=== PATIENT | male | born 1950 | race Caucasian/White ===

== ENCOUNTER 2021-12-09 19:24 | Inpatient (IN) ==
--- NOTE | 2021-12-09 20:01 | Emergency Department Note ---
HPI General Chief complaint: Blood Pressure Problem Stated complaint: hypertension Time Seen by Provider: 12/09/21 19:26 Source: patient Mode of arrival: ambulatory Limitations: no limitations History of Present Illness HPI Narrative: Narrative: Patient is a 71-year-old male who presents to the emergency department with a chief complaint of high blood pressure. Patient reports a mild headache for the last 2 days. Patient is on lisinopril 40 mg daily as well as metoprolol 100 mg twice a day. Patient reports he has been compliant with his medications. He denies any chest pain, shortness of breath or lower e xtremity swelling. Related Data Home Medications Medication Instructions Recorded Confirmed metoprolol tartrate 100 mg tablet 100 mg PO BID 07/08/19 10/02/21 glipizide 2.5 mg tablet, extended 2.5 mg PO QDAY tab 08/15/21 10/02/21 release 24 hr aspirin 81 mg tablet,delayed 81 mg PO QDAY 09/26/21 10/02/21 release (Adult Low Dose Aspirin) Memory Pill PO QDAY 10/03/21 Sugar Balance PO QDAY 10/03/21 Previous Rx's Medication Instructions Recorded metformin 1,000 mg tablet 1,000 mg PO BID #180 tab 09/19/19 lisinopril 40 mg tablet 40 mg PO QDAY #30 tab 08/15/21 doxazosin 4 mg tablet 4 mg PO QHS #30 tab 09/26/21 Allergies Allergy/AdvReac Type Severity Reaction Status Date / Time No Known Drug Allergies Allergy Verified 12/10/21 04:12 Review of Systems ROS ROS Narrative: Narrative: All systems ED: reviewed and negative except as stated. [facility] Narrative Patient History Narrative: Narrative: Medical/Surgical/Family History All Active Problems (Updated 12/09/21 @ 21:22 by Sudhir Olmos DO) Hypertensive emergency (Acute) Lightheadedness (Acute) Type 2 diabetes mellitus with diabetic polyneuropathy (Chronic) Cognitive impairment, mild, so stated (Chronic) Hypertension (Chronic) Hypertriglyceridemia (Chronic) Vitamin D deficiency (Chronic) Raised prostate specific antigen (Chronic) Coronary artery disease (Chronic) penitentiary (current) use of aspirin (Chronic) History of tobacco use (Chronic) CKD stage G3a/A1, GFR 45-59 and albumin creatinine ratio <30 mg/g (Chronic) Eosinophilia (Chronic) Dizziness (Acute) Renal failure (ARF), acute on chronic (Acute) CKD (chronic kidney disease) stage 4, GFR 15-29 ml/min (Acute) Laceration (Acute) Laceration of right wrist (Acute) KIRILL (renal artery stenosis) (Acute) Medical History CKD stage G3a/A1, GFR 45-59 and albumin creatinine ratio <30 mg/g Acute rise in serum Cr and low grade eosinophilia may have been related to unilateral KIRILL (less than 50%) KIMBERLY inhibitor therapy. Could be acute interstitial nephritis No evidence of diabetic renal disease based on lack of proteinuria Cognitive impairment, mild, so stated Coronary artery disease Eosinophilia Low grade 600-1000 per cc and most likely causitive Rx (HCTZ) was stopped. History of tobacco use Hypertension I see no evidence of secondary hypertension Major problem is that he is a [id number], needs to limit sodium intake. 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 Raised prostate specific antigen Type 2 diabetes mellitus with diabetic polyneuropathy Vitamin D deficiency Surgical History S/P colonoscopy (~10/2007) 06/11/15 12/12/09 with Polyps-11/05 S/P right coronary artery (RCA) stent placement (~1999) S/P right knee arthroscopy (~1978) Family History Other No pertinent family history Social History Smoking Status: Former smoker Alcohol Intake Frequency: does not drink Substance Use: does not use Exam Narrative Narrative: Narrative: General Limitations: no limitations General appearance: Present alert Head Head: Present atraumatic and normocephalic Eye Eye: Present normal appearance, PERRL and EOMI ENT ENT: Present normal exam, normal oropharynx and mucous membranes moist Neck Neck: Present normal inspection, full ROM and trachea midline Chest Chest: Present normal inspection and symmetric chest wall rise Respiratory Respiratory: Present normal lung sounds bilaterally Cardiovascular Cardiovascular: Present regular rate and normal rhythm Adbominal Abdominal: Present soft and normal bowel sounds; Absent tenderness, guarding, rebound or organomegaly Extremities Extremities: Present normal inspection and full ROM; Absent tenderness Back Back: Present normal inspection and full ROM; Absent tenderness Neurological Neurological: Present alert, oriented X3, CN II-XII intact and normal gait Psychiatric Psychiatric: Present normal affect Skin Skin: Present warm (WNL); Absent rash Course Course Course Narrative: EKG shows a rate of 58, ME of 197, QRS 88, QTc 411, P waves upright in leads I, II and III inversion aVR no ME depression or elevation lead to RVR respectively normal axis, good R wave progression, no acute ST segment elevation depression, no short ME interval no biphasic T waves, nonspecific EKG, no STEMI. Preliminary interpretation of limited 1 view radiograph of the chest shows no obvious cardiopulmonary process. Final interpretation as per the radiologist. Patient initially treated with oral antihypertensives however he continues to be severely hypertensive with systolics in the 240s. Patient will be admitted for hypertensive urgency/emergency. Patient started on a Cardene drip and admitted to the hospitalist to the ICU. I spoke with dr. zimmerman the hospitalist who has agreed to admit this patient. Vital Signs Vital signs: Vital Signs Temperature 96.8 F L 12/09/21 19:25 Pulse Rate 60 12/09/21 19:25 Respiratory Rate 16 12/09/21 19:25 Blood Pressure 243/97 12/09/21 19:25 Pulse Oximetry (%) 99 12/09/21 19:25 Temperature 97.1 F 12/10/21 04:16 Pulse Rate 53 L 12/10/21 06:01 Respiratory Rate 19 12/10/21 06:01 Blood Pressure 133/67 12/10/21 06:01 Pulse Oximetry (%) 99 12/10/21 06:01 [facility] MDM Narrative Medical decision making narrative: Narrative: Lab Data Result diagrams: 12/09/21 20:19 12/10/21 06:21 Labs: Lab Results 12/09/21 12/09/21 12/09/21 Range/Units 20:19 20:19 20:19 WBC 11.0 (4.5-11.0) K/mcL RBC 4.48 L (4.63-6.08) M/mcL Hgb 13.0 L (13.7-17.5) g/dL Hct 39.6 L (40.1-51.0) % POC Hct 39 L (41-55) % MCV 88.4 (80.0-100.0) fL MCH 29.0 (26.0-34.0) pg MCHC 32.8 (31.0-36.0) g/dL RDW 13.1 (11.5-14.5) % Plt Count 253 (140-440) K/mcL MPV 10.1 (7.4-10.4) fL Neut % (Auto) 68.6 (38.0-78.0) % Lymph % (Auto) 18.8 (15.5-49.0) % [place] % (Auto) 7.3 (1.0-12.0) % Eos % (Auto) 4.5 (0.0-7.0) % Baso % (Auto) 0.8 (0.0-2.0) % Lymph # (Auto) 2.06 (1.50-4.80) K/mcL [place] # (Auto) 0.80 (0.10-0.90) K/mcL Eos # (Auto) 0.49 (0.00-0.70) K/mcL Baso # (Auto) 0.09 (0.00-0.30) K/mcL Absolute Neutrophils 7.53 (1.80-8.00) K/mcL PT (11.9-14.5) sec INR (0.9-1.1) POC Sodium 141 (133-145) mEq/L POC Potassium 4.5 (3.3-5.1) mEql/L POC Chloride 107 (96-108) mEq/L POC Total CO2 23 (22-30) mmol/L POC BUN 29 H (6-20) mg/dL POC Creatinine 2.5 H (0.6-1.2) mg/dL POC Glucose 137 H (70-105) mg/dL POC WB Ioniz Calcium 1.23 (1.16-1.32) mmEq/L Total Bilirubin (0.1-1.0) mg/dL Direct Bilirubin (0-0.3) mg/dL AST (<40) U/L ALT (<40) U/L Alkaline Phosphatase (39-117) U/L Total Creatine Kinase (24-195) U/L CK-MB (CK-2) (<6.7) ng/mL Myoglobin (28-72) ng/mL Troponin T < 0.01 (<0.03) ng/mL NT-Pro-B Natriuret Pep 1191.0 H (<125.0) pg/mL Total Protein (5.9-8.4) gm/dL Albumin (3.2-5.2) gm/dL Globulin (2.2-3.7) gm/dL Lipase (7-60) U/L 12/09/21 12/09/21 12/09/21 Range/Units 20:19 20:19 21:29 WBC (4.5-11.0) K/mcL RBC (4.63-6.08) M/mcL Hgb (13.7-17.5) g/dL Hct (40.1-51.0) % POC Hct (41-55) % MCV (80.0-100.0) fL MCH (26.0-34.0) pg MCHC (31.0-36.0) g/dL RDW (11.5-14.5) % Plt Count (140-440) K/mcL MPV (7.4-10.4) fL Neut % (Auto) (38.0-78.0) % Lymph % (Auto) (15.5-49.0) % [place] % (Auto) (1.0-12.0) % Eos % (Auto) (0.0-7.0) % Baso % (Auto) (0.0-2.0) % Lymph # (Auto) (1.50-4.80) K/mcL [place] # (Auto) (0.10-0.90) K/mcL Eos # (Auto) (0.00-0.70) K/mcL Baso # (Auto) (0.00-0.30) K/mcL Absolute Neutrophils (1.80-8.00) K/mcL PT 12.8 (11.9-14.5) sec INR 0.9 (0.9-1.1) POC Sodium (133-145) mEq/L POC Potassium (3.3-5.1) mEql/L POC Chloride (96-108) mEq/L POC Total CO2 (22-30) mmol/L POC BUN (6-20) mg/dL POC Creatinine (0.6-1.2) mg/dL POC Glucose (70-105) mg/dL POC WB Ioniz Calcium (1.16-1.32) mmEq/L Total Bilirubin 0.2 (0.1-1.0) mg/dL Direct Bilirubin < 0.2 (0-0.3) mg/dL AST 25 (<40) U/L ALT 22 (<40) U/L Alkaline Phosphatase 151 H (39-117) U/L Total Creatine Kinase 101 (24-195) U/L CK-MB (CK-2) 2.0 (<6.7) ng/mL Myoglobin 76 H (28-72) ng/mL Troponin T < 0.01 (<0.03) ng/mL NT-Pro-B Natriuret Pep (<125.0) pg/mL Total Protein 6.6 (5.9-8.4) gm/dL Albumin 4.2 (3.2-5.2) gm/dL Globulin 2.4 (2.2-3.7) gm/dL Lipase 59 (7-60) U/L ED POC Tests ED POC Tests: KLELY - SARS Antigen Negative Discharge Plan Patient/Caregiver Discharge Instructions Pt seen by KITCHEN LEAD/PA only: No Clinical Impression: Hypertensive emergency Patient Disposition: Xfer As Inpt ([facility]) Condition: Fair Discharge Date/Time: 12/10/21 00:05
[2021-12-09] MEDS ORDERED: hydrALAZINE 10 MG TABLET PO ONE ×2 (20:07→20:11)
[2021-12-09] MEDS ORDERED: fentaNYL 100 MCG/2 ML VIAL IV ONE (20:09)
[2021-12-09 20:27] LABS: POC Blood Urea Nitrogen 29 mg/dL (6-20); POC CO2 23 mmol/L (22-30); POC Calcium, Ionized 1.23 mmEq/L (1.16-1.32); POC Chloride 107 mEq/L (96-108); POC Creatinine 2.5 mg/dL (0.6-1.2); POC Glucose, Random 137 mg/dL (70-105); POC Hematocrit 39 % (41-55); POC Potassium 4.5 mEql/L (3.3-5.1); POC Sodium 141 mEq/L (133-145)
[2021-12-09] MEDS ORDERED: niCARdipine 25 MG in 0.9 % SODIUM CHLORIDE 240 ML IV SCH (21:15)
[2021-12-09 21:56] LABS: Basophils # (Auto) 0.09 K/mcL (0.00-0.30); Basophils % (Auto) 0.8 % (0.0-2.0); Eosinophils # (Auto) 0.49 K/mcL (0.00-0.70); Eosinophils % (Auto) 4.5 % (0.0-7.0); Hematocrit 39.6 % (40.1-51.0); Lymphocytes # (Auto) 2.06 K/mcL (1.50-4.80); Lymphocytes % (Auto) 18.8 % (15.5-49.0); Mean Cell Volume 88.4 fL (80.0-100.0); Mean Corpuscular HGB Conc 32.8 g/dL (31.0-36.0); Mean Platelet Volume 10.1 fL (7.4-10.4); Monocytes % (Auto) 7.3 % (1.0-12.0); Neutrophils % (Auto) 68.6 % (38.0-78.0); Platelet Count 253 K/mcL (140-440); RBC 4.48 M/mcL (4.63-6.08); Red Cell Distribution Width 13.1 % (11.5-14.5)
[2021-12-09 22:06] LABS: INR 0.9 (0.9-1.1); Prothrombin Time 12.8 sec (11.9-14.5)
[2021-12-09 22:12] LABS: Myoglobin 76 ng/mL (28-72)
[2021-12-09 22:14] LABS: ALT/SGPT 22 U/L (<40); AST/SGOT 25 U/L (<40); Albumin 4.2 gm/dL (3.2-5.2); Alkaline Phosphatase 151 U/L (39-117); Bilirubin,Direct < 0.2 mg/dL (0-0.3); Bilirubin,Total 0.2 mg/dL (0.1-1.0); Creatine Kinase 101 U/L (24-195); Globulin 2.4 gm/dL (2.2-3.7)
--- NOTE | 2021-12-09 22:50 | Internal Med History&Physical ---
HPI History of Present Illness Patient information: Note initiated : 12/09/21 at 10:49 pm Service Date, if different from initiated Date: [] Patient: Moe Hunt 71 y/o M admitted on for hypertension. Chief Complaint: [] History of present illness: Mr. Hunt is a 71-year-old male with a history of hypertension, documented renal artery stenosis, type 2 diabetes mellitus, coronary artery disease, CKD stage IV who presented to the emergency department for high blood pressure and mild headache for about 2 days. The patient apparently has been compliant with his medications however he is quite confused unable to remember the medication doses. The patient also unable to remember basic things like the date and who the last 3 presidents have been. In the ED, the patient initially had extremely elevated blood pressure that did not respond to hydralazine so the patient was started on a nicardipine infusion. The patient was afebrile, no leukocytosis, renal function was at the patient's baseline. The patient did have a mild headache but no focal findings. Troponin was normal, NT proBNP was elevated at 1191. The patient appeared euvolemic on exam, Chest xray showed bilateral clear lung ventura. There was clinical evidence of congestive heart failure. Hospital medicine was asked to admit the patient for hypertensive urgency. Review of systems Constitutional: no fever, fatigue, or weight loss Eyes: no vision changes or pain Cardiovascular: no chest pain, no palpitations Respiratory: no cough or dyspnea Gastrointestinal: no abdominal pain, no nausea, vomiting, or diarrhea Genitourinary: no dysuria or difficulty voiding Musculoskeletal: no arthralgia or myalgia Integumentary: no skin lesion or wound Neurological: Positive for headache, no focal weakness or numbness Psychiatric: no anxiety or depression Physical exam Head: Atraumatic, normal inspection. Eyes: normal appearance, no scleral icterus. Neck: full ROM Respiratory: no respiratory distress. Cardiovascular: normal rate and rhythm, S1, S2. GI/Abdominal: soft, nontender, no guarding. Extremities: full range of motion, nontender. Neurological: CN II-XII intact, intact motor, intact sensation. Psychiatric: normal mood, impaired memory Skin: warm, normal color PFSH PFSH All Active Problems (Updated 12/09/21 @ 21:22 by Sudhir Olmos DO) Hypertensive emergency (Acute) Lightheadedness (Acute) Type 2 diabetes mellitus with diabetic polyneuropathy (Chronic) Cognitive impairment, mild, so stated (Chronic) Hypertension (Chronic) Hypertriglyceridemia (Chronic) Vitamin D deficiency (Chronic) Raised prostate specific antigen (Chronic) Coronary artery disease (Chronic) ocean transportation intermediary (current) use of aspirin (Chronic) History of tobacco use (Chronic) CKD stage G3a/A1, GFR 45-59 and albumin creatinine ratio <30 mg/g (Chronic) Eosinophilia (Chronic) Dizziness (Acute) Renal failure (ARF), acute on chronic (Acute) CKD (chronic kidney disease) stage 4, GFR 15-29 ml/min (Acute) Laceration (Acute) Laceration of right wrist (Acute) KIRILL (renal artery stenosis) (Acute) Medical History CKD stage G3a/A1, GFR 45-59 and albumin creatinine ratio <30 mg/g Acute rise in serum Cr and low grade eosinophilia may have been related to unilateral KIRILL (less than 50%) KIMBERLY inhibitor therapy. Could be acute interstitial nephritis No evidence of diabetic renal disease based on lack of proteinuria Cognitive impairment, mild, so stated Coronary artery disease Eosinophilia Low grade 600-1000 per cc and most likely causitive Rx (HCTZ) was stopped. History of tobacco use Hypertension I see no evidence of secondary hypertension Major problem is that he is a [id number], needs to limit sodium intake. 24-hour ambulatory blood pressure monitoring shows average blood pressure in the 140 range during the daytime and closer to 150 during the evening Metoprolol at maximal dose due to HR, same is true with lisinopril Alpha 1 antagonist Hypertriglyceridemia Lightheadedness jail (current) use of aspirin Raised prostate specific antigen Type 2 diabetes mellitus with diabetic polyneuropathy Vitamin D deficiency Surgical History S/P colonoscopy (~10/2007) 06/11/15 12/12/09 with Polyps-11/05 S/P right coronary artery (RCA) stent placement (~1999) S/P right knee arthroscopy (~1978) Family History Other No pertinent family history Social History marital status: occupational status: employed physical activity: other details: Bowling alcohol intake frequency: does not drink substance use type: does not use MEDS/ALLERGIES Home Medications and Allergies Home Medications Medication Instructions Recorded Confirmed Type metoprolol tartrate 100 mg tablet 100 mg PO BID 07/08/19 10/02/21 History metformin 1,000 mg tablet 1,000 mg PO BID #180 tab 09/19/19 10/02/21 Rx glipizide 2.5 mg tablet, extended 2.5 mg PO QDAY tab 08/15/21 10/02/21 History release 24 hr lisinopril 40 mg tablet 40 mg PO QDAY #30 tab 08/15/21 10/02/21 Rx aspirin 81 mg tablet,delayed 81 mg PO QDAY 09/26/21 10/02/21 History release (Adult Low Dose Aspirin) doxazosin 4 mg tablet 4 mg PO QHS #30 tab 09/26/21 10/02/21 Rx Memory Pill PO QDAY 10/03/21 History Sugar Balance PO QDAY 10/03/21 History Allergies Allergy/AdvReac Type Severity Reaction Status Date / Time No Known Drug Allergies Allergy Verified 12/10/21 04:12 EXAM Constitutional Vitals: Temp Pulse Resp BP Pulse Ox 96.8 F L 68 32 H 155/68 93 12/09/21 19:25 12/09/21 22:47 12/09/21 22:47 12/09/21 22:47 12/09/21 22:47 DATA Data Completed and Pending Labs: Labs from last 24 hours 12/09/21 12/09/21 12/09/21 21:29 20:19 20:19 WBC RBC Hgb Hct POC Hct MCV MCH MCHC RDW Plt Count MPV Neut % (Auto) Lymph % (Auto) [place] % (Auto) Eos % (Auto) Baso % (Auto) Lymph # (Auto) [place] # (Auto) Eos # (Auto) Baso # (Auto) Absolute Neutrophils PT 12.8 INR 0.9 POC Sodium POC Potassium POC Chloride POC Total CO2 POC BUN POC Creatinine POC Glucose POC WB Ioniz Calcium Total Bilirubin 0.2 Direct Bilirubin < 0.2 AST 25 ALT 22 Alkaline Phosphatase 151 H Total Creatine Kinase 101 CK-MB (CK-2) 2.0 Myoglobin 76 H Troponin T < 0.01 NT-Pro-B Natriuret Pep Total Protein 6.6 Albumin 4.2 Globulin 2.4 Lipase 59 12/09/21 12/09/21 12/09/21 20:19 20:19 20:19 WBC 11.0 RBC 4.48 L Hgb 13.0 L Hct 39.6 L POC Hct 39 L MCV 88.4 MCH 29.0 MCHC 32.8 RDW 13.1 Plt Count 253 MPV 10.1 Neut % (Auto) 68.6 Lymph % (Auto) 18.8 [place] % (Auto) 7.3 Eos % (Auto) 4.5 Baso % (Auto) 0.8 Lymph # (Auto) 2.06 [place] # (Auto) 0.80 Eos # (Auto) 0.49 Baso # (Auto) 0.09 Absolute Neutrophils 7.53 PT INR POC Sodium 141 POC Potassium 4.5 POC Chloride 107 POC Total CO2 23 POC BUN 29 H POC Creatinine 2.5 H POC Glucose 137 H POC WB Ioniz Calcium 1.23 Total Bilirubin Direct Bilirubin AST ALT Alkaline Phosphatase Total Creatine Kinase CK-MB (CK-2) Myoglobin Troponin T < 0.01 NT-Pro-B Natriuret Pep 1191.0 H Total Protein Albumin Globulin Lipase A/P Narrative A/P Narrative: Assessment: 71 year old male with a history of hypertension, documented renal artery stenosis, type 2 diabetes mellitus, coronary artery disease, CKD stage IV admitted for hypertensive urgency. #Hypertensive urgency #Confusion, possibly at baseline #Documented renal artery stenosis #Type 2 diabetes mellitus #CKD stage IV #Coronary artery disease #Possible cognitive impairment Plan -Start Lisinopril 20 mg daily, resume home dose when that information is available. -PRN Labetalol IV and Hydralazine. -Discontinue Nicardipine infusion. -ocean transportation intermediary SBP of 120 with CKD IV, will try to achieve that gradually over 48 hrs. -MRI brain to evaluate for PRES. -Bilateral renal ultrasound including arterial Doppler. -Medication reconciliation, resume essential meds. -SSI-low, hold home oral hypoglycemic meds. -Monitor renal function, avoid nephrotoxic meds. -Consider discussing with nephrology. -Low sodium renal/diabetic diet. -DVT ppx: Heparin SQ -Code status: Healthcare Insurance Sales Agent Spent With Patient Time: Total time spent is greater than 50% in coordination of care (as documented) at patient's floor/unit and/or counseling patient:
[2021-12-10] MEDS ORDERED: DEXTROSE 50% 50 ML VIAL IV PRN (00:14)
[2021-12-10] MEDS ORDERED: DEXTROSE 31 GM ORAL.SUSP PO PRN (00:14)
[2021-12-10] MEDS ORDERED: ACETAMINOPHEN 325 MG TABLET PO PRN (00:14)
[2021-12-10] MEDS: 0.9 % SODIUM CHLORIDE 250 ML IV SCH ×2 (02:32→15:21)
--- NOTE | 2021-12-10 04:07 | XRay Report ---
CLINICAL INFORMATION: Chest pain COMPARISON: None. TECHNIQUE: Portable FINDINGS: The heart size, mediastinum and pulmonary vessels are unremarkable. The lungs are clear. There are no effusions. The bones and soft tissues are within normal limits. IMPRESSION: Normal chest. Interpreted and Authenticated by: Jose Lee 12/10/21
[2021-12-10] MEDS: 0.9 % SODIUM CHLORIDE 10 ML SYRINGE IV SCH ×6 (04:43→20:27)
[2021-12-10] MEDS: INSULIN LISPRO 1 UNIT/0.01 ML UNIT SQ SCH ×4 (07:36→20:24)
[2021-12-10 08:05] LABS: Blood Urea Nitrogen 26 mg/dL (8-23); Calcium 8.8 mg/dL (8.6-10.4); Carbon Dioxide 22 mmol/L (22-30); Chloride 105 mmol/L (96-108); Glomerular Filtration Rate 25; Glucose 115 mg/dL (70-105)
[2021-12-10] MEDS: HEPARIN 5,000 UNIT/ML VIAL SQ SCH ×2 (09:44→20:23)
[2021-12-10] MEDS ORDERED: niCARdipine 25 MG in 0.9 % SODIUM CHLORIDE 240 ML IV PRN (10:30)
[2021-12-10] MEDS ORDERED: LISINOPRIL 20 MG TABLET PO ONE (10:37)
[2021-12-10] MEDS ORDERED: hydrALAZINE 20 MG/ML VIAL IV PRN (10:42)
[2021-12-10] MEDS: LISINOPRIL 20 MG TABLET PO SCH (11:25)
--- NOTE | 2021-12-10 12:01 | Ultrasound Report ---
CLINICAL INFORMATION: Hypertension COMPARISON: None. FINDINGS: Both kidneys are normal and symmetric in size, position, configuration and echotexture: Right kidney is 10 x 5 cm and the left kidney is 10 x 5 cm. No focal cystic or solid lesions in either kidney. No hydronephrosis or stone. Renal veins are patent. There is a stenosis (greater than 60%) of the proximal right renal artery. The left renal artery is patent. The resistive indices are normal bilaterally 0.7. IMPRESSION: Greater than 60% stenosis in the proximal right renal artery. Patient is at risk for renal vascular hypertension. If the patient is a candidate for stenting by interventional radiology, suggest confirmation with CT abdominal aortography. MR abdominal aortography would be adequate if the patient cannot tolerate iodinated contrast Interpreted and Authenticated by: Jose Lee 12/10/21
--- NOTE | 2021-12-10 12:39 | Magnetic Resonance Report ---
CLINICAL INFORMATION: Acute hypertension with decreased mental status. Evaluate for PRESS COMPARISON: None. TECHNIQUE:Sagittal T1 FLAIR, axial T1 FLAIR, T2 FLAIR propeller, T2 propeller, gradient, diffusion, ADC and coronal T2 weighted images were acquired. FINDINGS: The ventricles, sulci, fissures and cisterns are symmetrically enlarged compatible with mild age-related atrophy. No extra-axial fluid collections or mass are appreciated. Scattered chronic ischemic foci in deep cerebral white matter is compatible with chronic microvascular senescent change-expected for age. The signal within the muniz-white matter of the cerebrum, brainstem and cerebellum is, otherwise, unremarkable. The signal void in intracerebral arteries, extra-axial cranial nerves, pituitary, orbits and paranasal sinuses are all normal. IMPRESSION: Mild atrophy and chronic ischemic changes in the cerebral white matter expected for age. There is no evidence of edema in the posterior circulation territory to suggest PRESS Interpreted and Authenticated by: Jose Lee 12/10/21
--- NOTE | 2021-12-10 12:41 | Magnetic Resonance Report ---
Cerebral MRV CLINICAL information: Recent emergency diabetes decreased level consciousness. Evaluate for process FINDINGS: The deep venous sinuses, superficial and cerebral veins are widely patent no evidence of venous stenosis. No evidence of thrombosis. IMPRESSION: Normal Interpreted and Authenticated by: Jose Lee 12/10/21
[2021-12-10] MEDS: LABETALOL 5 MG/ML ML IV PRN (18:41)
--- NOTE | 2021-12-10 21:03 | EKG ---
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
[2021-12-11] MEDS: 0.9 % SODIUM CHLORIDE 250 ML IV SCH ×2 (05:47→17:12)
[2021-12-11] MEDS: 0.9 % SODIUM CHLORIDE 10 ML SYRINGE IV SCH ×2 (05:48→16:12)
[2021-12-11] MEDS: INSULIN LISPRO 1 UNIT/0.01 ML UNIT SQ SCH ×3 (07:50→17:32)
[2021-12-11] MEDS: LISINOPRIL 20 MG TABLET PO SCH (08:21)
[2021-12-11] MEDS: HEPARIN 5,000 UNIT/ML VIAL SQ SCH (08:21)
[2021-12-11] MEDS: LABETALOL 5 MG/ML ML IV PRN (08:21)
[2021-12-11] MEDS ORDERED: NIFEdipine 30 MG TAB.XL.24H PO SCH (09:00)
[2021-12-11] MEDS ORDERED: ASPIRIN 81 MG TAB.CHEW PO SCH (09:00)
[2021-12-11] MEDS ORDERED: LISINOPRIL 20 MG TABLET PO SCH (09:00)
[2021-12-11] MEDS ORDERED: LISINOPRIL 20 MG TABLET PO ONE (09:11)
[2021-12-11] MEDS ORDERED: FLU VACC QS2021-22(6MOS UP)/PF 60 MCG/0.5 ML SYRINGE IM ONE (10:00)
--- NOTE | 2021-12-11 15:45 | Discharge Summary ---
Discharge Provider Provider Patient information: Note initiated : 12/11/21 at 3:43 pm Service Date, if different from initiated Date: [] Patient: Moe Hunt 71 y/o M admitted on 12/10/21 for hypertension. Chief Complaint: [] Date of admission: 12/10/21 00:05 Discharge date: 12/11/21 Primary care physician: Isrrael Youssef Consults: 12/09/21 Consult to Physician [CONS] Stat Comment: Consulting Provider: Dio Gamino Reason For Exam: Physician to Consult Discharge Meds Discharge Medications Home Medications glipizide 2.5 mg tablet, extended release 24 hr 2.5 mg PO QDAY tab 08/15/21 [History Confirmed 12/10/21 Last Taken Unknown] lisinopril 40 mg tablet 40 mg PO QDAY #30 tab 08/15/21 [Rx Confirmed 12/10/21 Last Taken Unknown] aspirin 81 mg tablet,delayed release (Adult Low Dose Aspirin) 81 mg PO QDAY 09/26/21 [History Confirmed 12/10/21 Last Taken Unknown] Memory Pill 1 cap PO QDAY 10/03/21 [History Confirmed 12/10/21 Last Taken Unknown] Sugar Balance 2 cap PO QDAY 10/03/21 [History Confirmed 12/10/21 Last Taken Unknown] doxazosin 2 mg tablet 1 tab PO HS 12/10/21 [History Confirmed 12/10/21 Last Taken Unknown] carvedilol 12.5 mg tablet 12.5 mg PO BIDCC #60 tab 12/11/21 [Rx Last Taken U nknown] nifedipine 30 mg tablet,extended release 30 mg PO DAILY #60 tab 12/11/21 [Rx Last Taken Unknown] COURSE Hospital Course Hospital course: Mr. Hunt is a 71-year-old male with a history of hypertension, documented renal artery stenosis, type 2 diabetes mellitus, coronary artery disease, CKD stage IV who presented to the emergency department for high blood pressure and mild headache for about 2 days. The patient apparently has been compliant with his medications however he is quite confused unable to remember the medication doses. The patient also unable to remember basic things like the date and who the last 3 presidents have been. In the ED, the patient initially had extremely elevated blood pressure that did not respond to hydralazine so the patient was started on a nicardipine infusion. The patient was afebrile, no leukocytosis, renal function was at the patient's baseline. The patient did have a mild headache but no focal findings. Troponin was normal, NT proBNP was elevated at 1191. The patient appeared euvolemic on exam, Chest xray showed bilateral clear lung ventura. There was clinical evidence of congestive heart failure. Hospital medicine was asked to admit the patient for hypertensive urgency. 12/11 Added Nifedipine and Coreg today, blood pressure has been better controlled. Renal ultrasound showed greater than 60% stenosis in the proximal right renal artery. The patient will be discharged to home on prior home doses of Lisinopril and Cardura as well as newly added Coreg and Nifedipine. Lopressor discontinued. Encouraged the patient to reduce sodium intake, exercise regularly, and keep a blood pressure diary. Follow up with PCP and nephrology. Physical exam Head: Atraumatic, normal inspection. Eyes: normal appearance, no scleral icterus. Neck: full ROM Respiratory: no respiratory distress. Cardiovascular: normal rate and rhythm, S1, S2. GI/Abdominal: soft, nontender, no guarding. Extremities: full range of motion, nontender. Neurological: CN II-XII intact, intact motor, intact sensation. Psychiatric: normal mood, impaired memory Skin: warm, normal color Discharge diagnosis: Hypertensive urgency Time Spent with Patient Time attestation: Total time spent providing and/or coordinating discharge services: EXAM Constitutional Vitals: Temp Pulse Resp BP Pulse Ox 97.3 F 71 14 153/76 98 12/11/21 12:00 12/11/21 15:27 12/11/21 15:27 12/11/21 15:01 12/11/21 15:27 Discharge Plan Patient/Caregiver Discharge Instructions Activity: increase activity as tolerated Diet: Low Sodium (2gm) and Consistent Carbohydrate Instructions: Meal Planning with Diabetes Exchanges (GEN), Hypertension (GEN) Prescriptions: New carvedilol 12.5 mg Tablet 12.5 mg PO BIDCC Qty: 60 5RF nifedipine 30 mg Tablet Extended Release 30 mg PO DAILY Qty: 60 4RF Continued Memory Pill 1 cap PO QDAY 0RF Sugar Balance 2 cap PO QDAY 0RF lisinopril 40 mg tablet 40 mg PO QDAY Qty: 30 11RF Rx Instructions: START DAY AFTER RENAL SCAN AUG 292020 glipizide 2.5 mg tablet extended release 24hr 2.5 mg PO QDAY 0RF Label Comments: TAKE 1 TABLET BY MOUTH ONCE DAILY IN THE MORNING aspirin [Adult Low Dose Aspirin] 81 mg tablet,delayed release (DR/EC) 81 mg PO QDAY 0RF doxazosin 2 mg tablet 1 tab PO HS 0RF Discontinued metoprolol tartrate 100 mg tablet 100 mg PO BID 0RF Follow Up Plan Follow up with: Isrrael Youssef DO [Primary Care Provider] - 12/18/21 10:00 am Keaton Ramirez MD [Physician] - (Post hospital follow up for hypertensive urgency. ) Patient Disposition: Home, Self-Care Prognosis: Fair Overall status at discharge: patient is back to baseline Discharge Orders: Discharge Order (Routine); Ordered 12/11/21 Ordered By: Dio SOLARES VTE Deep Vein Thrombosis/Pulmonary Embolism Present on Admission: No
[2021-12-11] MEDS: CARVEDILOL 12.5 MG TABLET PO SCH ×2 (16:12→17:39)
[2021-12-11] MEDS ORDERED: DOXAZOSIN 1 MG TABLET PO SCH (21:00)
== END 2021-12-11 18:00 | disposition home or self-care (01) | DRG 305 ==
LOC: ED 19:24 → ICU 12-10 00:05
PROVIDERS: ADMIT Internal Medicine; ATTEND Internal Medicine